=== PATIENT | male | born 1995 | race African-American/Black ===

== ENCOUNTER 2017-01-10 04:40 | Emergency (ER) | payer SELFPAY ==
[~2017-01-10] VITALS: Ht 182.9 cm; Wt 122.7 kg
[~2017-01-10 04:40] MED LIST: Colace PO; Dulcolax PO; Keflex PO; MOTRIN800 MG PO; oxyCODONE PO
[2017-01-10 05:17] VITALS: BP 167/108
== END 2017-01-10 05:17 ==
LOC: EME 04:40
DX: S21.241A Puncture wound with foreign body of right back wall of thorax without penetration into thoracic cavity, initial encounter (principal); S31.040A Puncture wound with foreign body of lower back and pelvis without penetration into retroperitoneum, initial encounter; S71.042A Puncture wound with foreign body, left hip, initial encounter; Y35.491A Legal intervention involving other sharp objects, law enforcement official injured, initial encounter; F17.200 Nicotine dependence, unspecified, uncomplicated
CPT/HCPCS: 99281; 99284

== ENCOUNTER 2017-05-12 15:06 | Emergency (ER) | payer SELFPAY ==
[~2017-05-12] VITALS: Ht 185.4 cm; Wt 143.5 kg
[2017-05-12 17:01] LABS: APPEARANCE SL.HAZY ((CLEAR)); BILIRUBIN NEGATIVE; BLOOD NEGATIVE; COLOR AMBER ((YELLOW)); GLUCOSE (STRIP) NEGATIVE; KETONES 5; LEUKOCYTES NEGATIVE; NITRITE NEGATIVE; PROTEIN (STRIP) 30; SPECIFIC GRAVITY 1.032 (1.000-1.030)
[2017-05-12 17:10] LABS: BACTERIA NONE SEEN /HPF; EPITHELIAL CELLS RARE /HPF; MUCUS 2+ /LPF; RED BLOOD CELLS 0-5 /HPF (0-5); WHITE BLOOD CELLS 0-5 /HPF (0-5)
[2017-05-12 17:13] LABS: BASOPHIL (%) 0.3 % (0-1); EOSINOPHIL (%) 0 % (0-5); HEMATOCRIT 42.7 % (38.0-50.0); HEMOGLOBIN 14.1 G/DL (12.5-16.6); IMMATURE GRANULOCYTE (%) 0.5 % (0.0-0.7); LYMPHOCYTE (%) 7.4 % (15-42); MCH 28.8 PG (29.0-34.0); MCV 87.1 FL (86-99); MONOCYTE (%) 9.7 % (3-12); MONOCYTE COUNT 1.2 K/uL (0-0.8); NEUTROPHIL (%) 82.1 % (45-76); NEUTROPHIL COUNT 10.5 K/uL (1.8-6.4); PLATELET COUNT 281 K/uL (156-360); RBC DIS.WIDTH-CV 14.2 % (11.8-14.6); RBC DIS.WIDTH-SD 45.4 % (39-53); WHITE BLOOD COUNT 12.8 K/uL (4.1-10.2)
[2017-05-12 17:23] LABS: CHLORIDE 100 mEq/L (99-109); POTASSIUM 3.8 mEq/L (3.7-5.4); SODIUM 137 mEq/L (136-147)
[2017-05-12 17:25] LABS: GLUCOSE 105 mg/dL (70-99); TOTAL PROTEIN 7.7 g/dL (6.4-8.3)
[2017-05-12 17:27] LABS: TOTAL BILIRUBIN 0.3 mg/dL (0.0-1.0)
[2017-05-12 17:28] LABS: ALKALINE PHOSPHATASE 71 IU/L (3-129)
[2017-05-12 17:29] LABS: CREATININE 1.1 mg/dL (0.6-1.3); GFR ESTIMATE (CALCULATED) > 59 mL/min/ (58.99-99999)
[2017-05-12 17:30] LABS: AST (GOT) 15 IU/L (2-34); DIRECT BILIRUBIN 0.1 mg/dL (0.0-0.3); UREA NITROGEN (BUN) 7 mg/dL (9-23)
[2017-05-12 17:32] LABS: ALT (GPT) 14 IU/L (3-49); LIPASE 14 U/L (1.0-51.0)
[2017-05-12 17:47] LABS: AMPHETAMINE NEGATIVE (500 ng/mL); BARBITURATES NEGATIVE (200 ng/mL); BENZODIAZEPINES NEGATIVE (150 ng/mL); BUPRENORPHINE NEGATIVE (10 ng/mL); COCAINE PRESUMPTIVE POSITIVE (150 ng/mL); METHADONE NEGATIVE (200 ng/mL); METHAMPHETAMINE NEGATIVE (500 ng/mL); OPIATES (MORPHINE) NEGATIVE (100 ng/mL); OXYCODONE NEGATIVE (100 ng/mL); PHENCYCLIDINE NEGATIVE (25 ng/mL); PROPOXYPHENE NEGATIVE (300 ng/mL); THC CANNABINOIDS PRESUMPTIVE POSITIVE (50 ng/mL); TRICYCLIC ANTIDEPRESSANTS NEGATIVE (300 ng/mL)
[2017-05-12 18:22] LABS: MONOSPOT (MONONUCLEOSIS SEROL) NEGATIVE
[2017-05-12 19:00] LABS: SOURCE URINE
[2017-05-12] MEDS ORDERED: MOTRIN800 MG PO (19:46)
[2017-05-12] MEDS ORDERED: NORCO 7.5/321 TABLET PO (19:46)
[2017-05-12] MEDS ORDERED: BACTRIM,SEPT1 TABLET PO (19:46)
[2017-05-12] MEDS ORDERED: ZOFRAN ODT4 MG PO (19:46)
[2017-05-12 20:32] VITALS: BP 140/82
[2017-05-13] MEDS ORDERED: FLONASE16 G1 BOTH NARES (12:55)
[2017-05-16 11:54] LABS: CHLAMYDIA TRACHOMATIS NEGATIVE; NEISSERIA GONORRHOEAE NEGATIVE
== END 2017-05-12 20:34 | disposition home or self-care (01) ==
LOC: EME 15:06
PROVIDERS: Physician Assistant
DX: N30.90 Cystitis, unspecified without hematuria (principal); E86.0 Dehydration; R11.2 Nausea with vomiting, unspecified; F17.200 Nicotine dependence, unspecified, uncomplicated
CPT/HCPCS: 71020; 74176; 80048; 80076; 81003; 83605; 83690; 84999; 85025; 86308; 87040; 87086; 87491; 87493; 87502; 87591; 99281; 99285; J0696; J1885; J2405; J7030

== ENCOUNTER 2017-05-13 11:46 | Emergency (ER) | payer SELFPAY ==
[~2017-05-13] VITALS: Ht 182.9 cm; Wt 142.8 kg
[~2017-05-13 11:46] MED LIST changes: +BACTRIM,SEPT1 TABLET PO; +NORCO 7.5/321 TABLET PO; +ZOFRAN ODT4 MG PO
[2017-05-13] MEDS ORDERED: FLONASE16 G1 BOTH NARES (12:55)
[2017-05-13 13:28] VITALS: BP 130/80
== END 2017-05-13 13:29 | disposition home or self-care (01) ==
LOC: EME 11:46
DX: J06.9 Acute upper respiratory infection, unspecified (principal); J32.9 Chronic sinusitis, unspecified; B34.9 Viral infection, unspecified; F17.200 Nicotine dependence, unspecified, uncomplicated
CPT/HCPCS: 99281; 99283

== ENCOUNTER 2017-06-08 01:39 | Emergency (ER) | payer SELFPAY ==
[~2017-06-08] VITALS: Ht 182.9 cm; Wt 149.6 kg
[~2017-06-08 01:39] MED LIST changes: +FLONASE16 G1 BOTH NARES
[2017-06-08] MEDS ORDERED: CIPRO500 MG PO (08:31)
[2017-06-08 09:00] VITALS: BP 137/88
== END 2017-06-08 09:03 | disposition home or self-care (01) ==
LOC: EME 01:39
DX: S31.21XA Laceration without foreign body of penis, initial encounter (principal); X58.XXXA Exposure to other specified factors, initial encounter; Y93.89 Activity, other specified; F17.200 Nicotine dependence, unspecified, uncomplicated
CPT/HCPCS: 81003

== ENCOUNTER 2017-07-14 20:31 | Emergency (ER) | payer SELFPAY ==
[~2017-07-14] VITALS: Ht 185.4 cm; Wt 147.9 kg
[~2017-07-14 20:31] MED LIST changes: +CIPRO500 MG PO
[2017-07-14 20:52] LABS: APPEARANCE CLEAR ((CLEAR)); BILIRUBIN NEGATIVE; BLOOD NEGATIVE; COLOR YELLOW ((YELLOW)); GLUCOSE (STRIP) NEGATIVE; KETONES NEGATIVE; LEUKOCYTES NEGATIVE; NITRITE NEGATIVE; PROTEIN (STRIP) NEGATIVE; SPECIFIC GRAVITY 1.027 (1.000-1.030); UCUL ADDED? NO
[2017-07-14] MEDS ORDERED: DIFLUCAN150 MG PO (23:32)
[2017-07-14 23:53] VITALS: BP 163/93
== END 2017-07-14 23:54 | disposition home or self-care (01) ==
LOC: EME 20:31
DX: N34.2 Other urethritis (principal); R03.0 Elevated blood-pressure reading, without diagnosis of hypertension; F17.200 Nicotine dependence, unspecified, uncomplicated
CPT/HCPCS: 81003; 99281; 99283

== ENCOUNTER 2017-08-12 15:39 | Emergency (ER) | payer OTHER ==
[~2017-08-12] VITALS: Ht 182.9 cm; Wt 151.6 kg
[~2017-08-12 15:39] MED LIST changes: +DIFLUCAN150 MG PO
[2017-08-12 16:56] LABS: HEMATOCRIT 39.6 % (38.0-50.0); HEMOGLOBIN 13.5 G/DL (12.5-16.6); MCH 29.9 PG (29.0-34.0); MCHC 34.1 G/DL (30.0-36.0); MCV 87.8 FL (86-99); PLATELET COUNT 271 K/uL (156-360); RBC DIS.WIDTH-CV 14.3 % (11.8-14.6); RBC DIS.WIDTH-SD 45.8 % (39-53); RED BLOOD COUNT 4.51 M/uL (4.00-5.50)
[2017-08-12 16:59] LABS: APPEARANCE SL.HAZY ((CLEAR)); BILIRUBIN NEGATIVE; BLOOD NEGATIVE; COLOR YELLOW ((YELLOW)); GLUCOSE (STRIP) NEGATIVE; KETONES NEGATIVE; LEUKOCYTES NEGATIVE; NITRITE NEGATIVE; PROTEIN (STRIP) 30; SPECIFIC GRAVITY 1.029 (1.000-1.030)
[2017-08-12 17:03] LABS: BACTERIA RARE /HPF; EPITHELIAL CELLS RARE /HPF; HYALINE CASTS 0-5 /LPF; MUCUS 1+ /LPF; RED BLOOD CELLS 0-5 /HPF (0-5); UCUL ADDED? NO; WHITE BLOOD CELLS 0-5 /HPF (0-5)
[2017-08-12 17:03] LABS: CHLORIDE 108 mEq/L (99-109); SODIUM 145 mEq/L (136-147)
[2017-08-12 17:05] LABS: GLUCOSE 83 mg/dL (70-99)
[2017-08-12 17:09] LABS: CREATININE 1.1 mg/dL (0.6-1.3); GFR ESTIMATE (CALCULATED) > 59 mL/min/ (58.99-99999)
[2017-08-12 17:10] LABS: UREA NITROGEN (BUN) 10 mg/dL (9-23)
[2017-08-12 19:48] LABS: SOURCE URINE
[2017-08-12] MEDS ORDERED: VIBRAMYCIN100 MG PO (20:37)
[2017-08-12 21:07] VITALS: BP 130/81
[2017-08-15 13:13] LABS: CHLAMYDIA TRACHOMATIS NEGATIVE; NEISSERIA GONORRHOEAE NEGATIVE
== END 2017-08-12 21:07 | disposition home or self-care (01) ==
LOC: EME 15:39
DX: N45.1 Epididymitis (principal); R10.9 Unspecified abdominal pain; F17.200 Nicotine dependence, unspecified, uncomplicated
CPT/HCPCS: 74176; 76870; 80048; 81003; 85027; 85610; 87491; 87591; 99281; 99284; J0696